=== PATIENT | female | born 1940 ===

== ENCOUNTER 2023-03-15 16:05 | Outpatient (REF) | payer MEDICARE, SELFPAY ==
[2023-03-15 17:12] LABS: ALT 33 U/L (14-59); AST 25 U/L (15-37)
== END 2023-03-15 16:06 | disposition home or self-care (01) ==
LOC: NCHCN 16:05
PROVIDERS: Visit Provider Family Medicine
DX: E78.5 Hyperlipidemia, unspecified (principal); E03.9 Hypothyroidism, unspecified; I10 Essential (primary) hypertension
CPT/HCPCS: 84450; 84460

== ENCOUNTER 2024-01-24 11:36 | Outpatient (REF) | payer MEDICARE, SELFPAY ==
--- OUTSIDE RECORDS SUMMARY | 2024-01-24 11:39 | XMS_ITS | Continuity of Care Document ---
Author Organization [place] - [facility] Address [address] [place] [address] Assessment No assessment recorded. Plan of Treatment Reminders Order Date Submit Date Provider Last Modified By Organization Details Last Modified Time Details Appointments Nurse Visit 2023 10:30A M Kamuela Nursing Staff Not available Not available Not available Annual Chronic Care (65+) 2024 02:10P M OLINDA DEGE Not available Not available Not available Annual Chronic Care (65+) 2024 10:10A M OLINDA DEGE Not available Not available Not available Lab CMP, serum or plasma 2023 024 [email or web address] [facility] (Registration ), [address] [place] [address] [place], [address], 01/24/2024 11:18:48 CBC w/ auto diff 2023 024 [email or web address] [facility] (Registration ), [address] [place] [address] [place], [address], 01/24/2024 11:18:48 lipid panel, serum - 1Y 2023 024 [email or web address] [facility] (Registration ), [address] [place] [address] [place], [address], 01/24/2024 10:40:26 Referral None recorded. Procedures None recorded. Surgeries None recorded. Imaging None recorded. Medication Orders lisinopri l 10 mg tablet 2023 024 OLGA [facility]), [facility], [address], [place], [place], [id number], 12/28/2023 09:59:53 hydrochlo rothiazid e 25 mg tablet 2023 024 OLGA [facility] ([facility]), [address] [facility], [address], [place], [place], [id number], 12/28/2023 09:59:53 lovastati n 40 mg tablet 2023 024 OLGA [facility] ([facility]), [address] [facility], [address], [place], [place], [id number], 12/28/2023 09:59:52 fluoxetin e 60 mg tablet 2023 024 [email or web address] [facility] ([facility]), [address] [facility], [address], [place], [place], [id number], 01/02/2024 10:04:16 Patient TargetsNo targets recorded. Patient InstructionsNo instructions recorded. Reason for Referral None Reported. Problems Name Status Onset Date Resolution Date Notes Provider Name and Address Organization Details Recorded Time Essential hypertension Active [address], [place], [address] , [facility] 4 17:10:55 Hypothyroidism Active [address], [place], [address], [facility] 4 17:10:43 Depressive disorder Active [address], [place], [address], [facility] 4 17:11:00 Bilateral carpal tunnel syndrome Active 023 Suleiman Vogel null, [facility] 4 17:13:39 Hyperlipidemia Active 023 OLINDA NELSON MD [address], [place], [address], [facility] 4 17:10:50 Adult health examination Active 023 6 mos in [place], annual labs typically done there OLINDA NELSON MD [address], [facility] [address], [facility] 4 09:34:38 Knee joint prosthesis present Completed 023 12/28/2023 OLINDA NELSON MD [address], [facility] [address], [facility] 4 09:35:25 Actinic keratosis Active 014 OLINDA NELSON MD [address], [facility] [address], 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 4 09:35:53 Hemangioma Active 015 Suleiman Vogel [facility] 4 17:15:01 Acne vulgaris Active 021 Suleiman Vogel [facility] 4 17:13:25 Problem Notes None recorded. Medical Equipment None Reported. Allergies Allergen ID Allergen Name Allergen Category Reaction Reaction Severity Criticality Documentation Date Start Date Code Code System Note Provider Name and Address Organization Details Recorded Time 91802 sulfasala zine Not available rash severe Not available 05/19/20232022 9524 RxNorm Not Available [facility] 3 16:25:22 Medications Name Sig Start Date Stop Date Status Note LastModified by Organization Details LastModified Time fluoxetine 40 mg capsule Take 1 capsule by mouth daily with 20 mg capsule to equal 60mg active Not Available Not Available No t Available CoQ10 10 mg capsule Take 1 capsule every day by oral route. active OTC Not Available Not Available No t Available lovastatin 40 mg tablet Take 1 tablet by mouth every night active Not Available Not Available No t Available acetaminoph en 300 mg-codeine 30 mg tablet TAKE ONE TABLET BY MOUTH EVERY 6 HOURS 12/27 completed Not Available Not Available Not Available levothyroxi ne 88 mcg tablet TAKE ONE TABLET BY MOUTH EVERY MORNING ON AN EMPTY STOMACH active Not Available Not Available No t Available amoxicillin 875 mg tablet TAKE ONE TABLET BY MOUTH TWICE A DAY UNTIL GONE 12/27 completed Not Available Not Available Not Available lisinopril 10 mg tablet TAKE 1 TABLET BY MOUTH ONCE DAILY 2023 active Not Available Not Available Not Avai lable hydrochloro thiazide 25 mg tablet Take 1 tablet every day by oral route in the morning. active Not Available Not Available No t Available methylpredn isolone 4 mg tablets in a dose pack TAKE BY MOUTH DIRECTED ON PACKAGE 12/27 completed Not Available Not Available Not Available fluoxetine 20 mg capsule Take (1) 20 mg capsule with( 1) 40 mg capsule to total 60 mg active Not Available Not Available No t Available chlorhexidi ne gluconate 0.12 % mouthwash SWAB SURGICAL AREA TWICE A DAY FOR 1 WEEK DIRECTED 12/27 completed Not Available Not Available Not Available hydrochloro thiazide 12.5 mg tablet Take 2 tablet by mouth every morning (25 mg daily) 12/27 completed Not Available Not Available Not Available fluoxetine 60 mg tablet Take 1 tablet by mouth once a day 01/01 completed Not Available Not Available Not Available Vitals Date Recorded Body height Body mass index (BMI) Body weight Body temperature Oxygen saturation Oxygen saturation in Arterial blood by Pulse oximetry Heart rate Systolic blood pressure Diastolic blood pressure Provider Name and Address Organization Details Last Updated DateTime 4 157.48 cm 36.9 kg/m2 50137.6 6 g 97.1 [degF] 97 % 97 % 70 /min 140 mm[Hg] 90 mm[Hg] SHOLA TURCIOS [place] [facility]. 4 09:24:15 Social History None recorded. Functional Status None recorded. Mental Status None recorded. Family History Nothing Reported. Medical History No medical history recorded. Gynecological HistoryNo gynecological history recorded. Obstetrics History GPAL:G 0 P 0 0 0 0 Immunizations Vaccine Type Date Status Provider Name and Address Organization Details Recorded Time Tdap 12/28/2023 completed OLINDA NELSON MD [address], [place], [address], [facility] 01/02/2024 10:03:37 COVID-19, mRNA, LNP-S, PF, 100 mcg/0.5mL dose or 50 mcg/0.25mL dose 10/16/2021 completed RANDA DIMICK, REJOGGER null, [facility] 12/28/2023 15:17:57 COVID-19, mRNA, LNP-S, PF, 100 mcg/0.5mL dose or 50 mcg/0.25mL dose 05/27/2021 completed RANDA DIMICK, REJOGGER null, [facility] 12/28/2023 15:18:17 Hep B, unspecified formulation 12/25/2023 completed RANDA CANTUICK, REJOGGER null, [facility] 12/28/2023 15:18:42 Hep B, unspecified formulation 02/27/2014 completed RANDA DIMICK, REJOGGER null, [facility] 12/28/2023 15:18:49 Hep B, unspecified formulation 06/16/2014 completed RANDA DIMICK, REJOGGER null, [facility] 12/28/2023 15:18:55 Hep A, unspecified formulation 12/13/2018 completed RANDA CANTUICK, REJOGGER null, [facility] 12/28/2023 15:19:12 Pneumococcal conjugate PCV 13 10/05/2016 completed RANDA DIMICK, REJOGGER null, [facility] 12/28/2023 15:22:03 Pneumococcal conjugate PCV 13 01/22/2018 completed RANDA POP, REJOGGER null, [facility] 12/28/2023 15:22:10 pneumococcal polysaccharide PPV23 08/22/2007 completed RANDA POP, REJOGGER null, [facility] 12/28/2023 15:22:48 pneumococcal polysaccharide PPV23 10/06/2021 completed RANDA POP, REJOGGER null, [facility]. 12/28/2023 15:22:59 zoster live 10/09/2009 completed RANDA POP, REJOGGER null, [facility] 12/28/2023 15:23:16 zoster recombinant 09/21/2021 completed RANDA CANTU ICK, REJOGGER null, [facility] 12/28/2023 15:23:31 Tdap 12/04/2012 completed RANDA POP, REJOGGER null, [facility] 12/28/2023 15:23:49 COVID-19, mRNA, LNP-S, PF, 50 mcg/0.5 mL dose 09/24/2020 completed RANDA POP, REJOGGER null, [facility] 12/28/2023 15:24:55 COVID-19, mRNA, LNP-S, PF, 50 mcg/0.5 mL dose 10/22/2020 completed RANDA POP, REJOGGER null, [facility] 12/28/2023 15:25:06 Respiratory syncytial virus (RSV) MAB, unspecified 05/01/2023 completed RANDA POP, REJOGGER null, [facility] 12/28/2023 15:29:36 COVID-19, mRNA, LNP-S, PF, 100 mcg/0.5mL dose or 50 mcg/0.25mL dose 10/11/2023 completed RANDA POP, REJOGGER null, [facility] 12/28/2023 15:30:36 influenza, unspecified formulation 05/06/2010 completed RANDA POP, REJOGGER null, [facility] 12/28/2023 15:32:11 influenza, unspecified formulation 06/25/2011 completed RANDA POP, REJOGGER null, [facility] 12/28/2023 15:32:16 influenza, unspecified formulation 05/06/2012 completed RANDA POP, REJOGGER null, [facility] 12/28/2023 15:32:36 influenza, unspecified formulation 07/23/2013 completed RANDA DIMICK, REJOGGER null, [facility] 12/28/2023 15:32:46 influenza, unspecified formulation 03/31/2015 completed RANDA DIMICK, REJOGGER null, [facility] 12/28/2023 15:33:00 influenza, unspecified formulation 06/09/2016 completed RANDA DIMICK, REJOGGER null, [facility] 12/28/2023 15:33:08 influenza, unspecified formulation 05/12/2016 completed RANDA DIMICK, REJOGGER null, [facility], [facility]. 12/28/2023 15:33:14 influenza, unspecified formulation 06/20/2017 completed RANDA DIMICK, REJOGGER null, [facility] 12/28/2023 15:33:19 influenza, unspecified formulation 05/10/2018 completed RANDA DIMICK, REJOGGER null, [facility], [facility] 12/28/2023 15:33:25 influenza, unspecified formulation 06/04/2019 completed RANDA DIMICK, REJOGGER null, [facility] 12/28/2023 15:33:38 influenza, unspecified formulation 04/08/2020 completed RANDA DIMICK, REJOGGER null, [facility], [facility]. 12/28/2023 15:33:53 influenza, unspecified formulation 06/21/2021 completed RANDA DIMICK, REJOGGER null, [facility] 12/28/2023 15:34:08 influenza, unspecified formulation 05/01/2023 completed RANDA DIMICK, REJOGGER null, [facility] 12/28/2023 15:35:12 Past Encounters Encounter ID Performer Location Encounter Start Date Encounter Closed Date Diagnosis/Indication Diagnosis SNOMED-CT Code [id number] OLINDA NELSON MD [address] [address] 12/28/2023 09:03:32 12/28/2023 10:16:53 Essential hypertension 30774283 Adult heal th examination 763771703 Hyperlipidemia 26705672 Hypothyroidism 06327208 Depressive disorder 3548 9007 Active or passive immunization 387784940 Health Concerns Section Related Observation LastModified by Organization Detai ls LastModified Time None Recorded Concern Status LastModified by Organization Details LastModified Time None Recorded Payers Encounter Date Sequence Insurance Name Policy Number Policy Rodas Covered Member ID Rodas Member ID Guarantor Name 12/28/2023 1 [facility] (MEDICARE REPLACEMENT/A DVANTAGE - PPO) [id number] Risa Junior [id number] Risa Junior Notes Date Note Type Note Provider Name and Address Organization Details Recorded Time 12/28/2023 text/html HPI Notes: Patient here for follow-up for her chronic issues including hypertension, hyperlipidemia, hypothyroidism. This half-time here, half in [place] plus some traveling. Providers in [place]. Did not do her annual blood work last time she was there so she will come back fasting here. Only real concern today is she has some issues with sleep at times. If she does get to the bathroom it takes a while to fall back to sleep again. Would like refills for her medications, agrees to come back for fasting labs OLINDA NELSON MD [address], [place], [address], [facility]. 01/02/2024 10:12:52 OBGyn Episode No OBEpisode recorded.
--- OUTSIDE RECORDS SUMMARY | 2024-01-24 11:39 | XMS_ITS | Data Portability ---
Author Organization [place] - [facility] Address [address] [place] [address] Assessment No assessment recorded. Plan of Treatment Reminders Order Date Submit Date Provider Last Modified By Organization Details Last Modified Time Details Appointments Nurse Visit 2023 10:30A M John Nursing Staff Not available Not available Not available Annual Chronic Care (65+) 2024 02:10P M OLINDA DEGE Not available Not available Not available Annual Chronic Care (65+) 2024 10:10A M OLINDA DEGE Not available Not available Not available Lab CMP, serum or plasma 2023 024 [email or web address] [facility] (Registration ), [address] [place] [address] [place], [address], 01/24/2024 11:18:48 CBC w/ auto diff 2023 024 [email or web address] [facility] (Registration ), [address] [place] [address] [place], [address], 01/24/2024 11:18:48 lipid panel, serum - 1Y 2023 024 [email or web address] [facility] (Registration ), [address] [place] [address] [place], [address], 01/24/2024 10:40:26 lipid panel, serum - 1Y 2023 024 [email or web address] [facility] (Registration ), [address] [place] [address] [place], [address], 01/24/2024 10:40:26 Referral None recorded. Procedures None recorded. Surgeries None recorded. Imaging None recorded. Medication Orders lisinopri l 10 mg tablet 2023 024 OLGA [facility]), [address] [facility], [address], [place], [place], [id number], 12/28/2023 09:59:53 hydrochlo rothiazid e 25 mg tablet 2023 024 OLGA [facility]), [address], [address], [place], [place], [id number], 12/28/2023 09:59:53 lovastati n 40 mg tablet 2023 024 OLGA [facility]), [address] [facility] [address] [facility], [address], [place], [place], [id number], 12/28/2023 09:59:52 fluoxetin e 60 mg tablet 2023 024 [email or web address] [facility]), [address] [facility], [address], [place], [place], [id number], 01/02/2024 10:04:16 Patient TargetsNo targets recorded. Patient InstructionsNo instructions recorded. Reason for Referral None Reported. Problems Name Status Onset Date Resolution Date Notes Provider Name and Address Organization Details Recorded Time Essential hypertension Active [address], [place], [address], [facility] 4 17:10:55 Hypothyroidism Active [address], [place], [address], [facility] 4 17:10:43 Depressive disorder Active [address], [place], [address], [facility] 4 17:11:00 Bilateral carpal tunnel syndrome Active 023 Suleiman Vogel [facility] 4 17:13:39 Hyperlipidemia Active 023 OLINDA NELSON MD [address], [place], [address], [facility] 4 17:10:50 Adult health examination Active 023 6 mos in [place], annual labs typically done there MD [address]en [address], [place], [address], [facility] 4 09:34:38 Knee joint prosthesis present Completed 023 12/28/[address], [place], [address], [facility] 4 09:35:25 Actinic keratosis Active [address], [place], [address], [facility] 4 09:35:57 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 Medical Equipment None Reported. Allergies Allergen ID Allergen Name Allergen Category Reaction Reaction Severity Criticality Documentation Date Start Date Code Code System Note Provider Name and Address Organization Details Recorded Time 74433 sulfasala zine Not available rash severe Not available 05/19/20232022 9556 RxNorm Not Available [facility] 3 16:25:22 Medications Name Sig Start Date [...] Updated DateTime 4 157.48 cm 36.9 kg/m2 26730.6 6 g 97.1 [degF] 97 % 97 % 70 /min 140 mm[Hg] 90 mm[Hg] SHOLA TURCIOS MA [facility], [facility]. 09:24:15 Date Recorded Body height Systolic blood pressure Diastolic blood pressure Provider Name and Address Organization Details Last Updated DateTime 01/24/2024 157.48 cm 118 mm[Hg] 70 mm[Hg] ANKUSH GALLOWAY CMA [facility]. 01/24/2024 10:34:24 Social History None recorded. Functional Status None recorded. Mental Status None recorded. Family History Nothing Reported. Medical History No medical history recorded. Gynecological HistoryNo gynecological history recorded. Obstetrics History GPAL:G 0 P 0 0 0 0 Immunizations Vaccine Type Date Status Provider Name and Address Organization Details Recorded Time Tdap 12/28/2023 completed OLINDA NELSON MD [address], [place], [address], [facility] 01/02/2024 10:03:37 COVID-19, mRNA, LNP-S, PF, 100 mcg/0.5mL dose or 50 mcg/0.25mL dose 10/16/2021 completed RANDA DIMICK, GUITAR MAKER HAND null, [facility] 12/28/2023 15:17:57 COVID-19, mRNA, LNP-S, PF, 100 mcg/0.5mL dose or 50 mcg/0.25mL dose 05/27/2021 completed RANDA CANTUICK, GUITAR MAKER HAND null, [facility]. 12/28/2023 15:18:17 Hep B, unspecified formulation 12/25/2023 completed RANDA PEPEICK, GUITAR MAKER HAND null, [facility] 12/28/2023 15:18:42 Hep B, unspecified formulation 02/27/2014 completed RANDA DIMICK, GUITAR MAKER HAND null, [facility]. 12/28/2023 15:18:49 Hep B, unspecified formulation 06/16/2014 completed RANDA DIMICK, GUITAR MAKER HAND null, [facility] 12/28/2023 15:18:55 Hep A, unspecified formulation 12/13/2018 completed RANDA DIMICK, GUITAR MAKER HAND null, [facility] 12/28/2023 15:19:12 Pneumococcal conjugate PCV 13 10/05/2016 completed RANDA POP, GUITAR MAKER HAND null, [facility]. 12/28/2023 15:22:03 Pneumococcal conjugate PCV 13 01/22/2018 completed RANDA POP, GUITAR MAKER HAND null, [facility] 12/28/2023 15:22:10 pneumococcal polysaccharide PPV23 08/22/2007 completed RANDA POP, GUITAR MAKER HAND null, [facility] 12/28/2023 15:22:48 pneumococcal polysaccharide PPV23 10/06/2021 completed RANDA POP, GUITAR MAKER HAND null, [facility] 12/28/2023 15:22:59 zoster live 10/09/2009 completed RANDA POP, GUITAR MAKER HAND null, [facility] 12/28/2023 15:23:16 zoster recombinant 09/21/2021 completed RANDA FUCHSK, GUITAR MAKER HAND null, [facility]. 12/28/2023 15:23:31 Tdap 12/04/2012 completed RANDA POP, GUITAR MAKER HAND null, [facility] 12/28/2023 15:23:49 COVID-19, mRNA, LNP-S, PF, 50 mcg/0.5 mL dose 09/24/2020 completed RANDA POP, GUITAR MAKER HAND null, [facility] 12/28/2023 15:24:55 COVID-19, mRNA, LNP-S, PF, 50 mcg/0.5 mL dose 10/22/2020 completed RANDA POP, GUITAR MAKER HAND null, [facility] 12/28/2023 15:25:06 Respiratory syncytial virus (RSV) MAB, unspecified 05/01/2023 completed RANDA POP, GUITAR MAKER HAND null, [facility] 12/28/2023 15:29:36 COVID-19, mRNA, LNP-S, PF, 100 mcg/0.5mL dose or 50 mcg/0.25mL dose 10/11/2023 completed RANDA CANTUICK, GUITAR MAKER HAND null, [facility] 12/28/2023 15:30:36 influenza, unspecified formulation 05/06/2010 completed RANDA DIMICK, GUITAR MAKER HAND null, [facility] 12/28/2023 15:32:11 influenza, unspecified formulation 06/25/2011 completed RANDA DIMICK, GUITAR MAKER HAND null, [facility] 12/28/2023 15:32:16 influenza, unspecified formulation 05/06/2012 completed RANDA DIMICK, GUITAR MAKER HAND null, [facility] 12/28/2023 15:32:36 influenza, unspecified formulation 07/23/2013 completed RANDA DIMICK, GUITAR MAKER HAND null, [facility] 12/28/2023 15:32:46 influenza, unspecified formulation 03/31/2015 completed RANDA DIMICK, GUITAR MAKER HAND null, [facility] 12/28/2023 15:33:00 influenza, unspecified formulation 06/09/2016 completed RANDA DIMICK, GUITAR MAKER HAND null, [facility] 12/28/2023 15:33:08 influenza, unspecified formulation 05/12/2016 completed RANDA DIMICK, GUITAR MAKER HAND null, [facility] 12/28/2023 15:33:14 influenza, unspecified formulation 06/20/2017 completed RANDA DIMICK, GUITAR MAKER HAND null, [facility] 12/28/2023 15:33:19 influenza, unspecified formulation 05/10/2018 completed RANDA DIMICK, GUITAR MAKER HAND null, [facility] 12/28/2023 15:33:25 influenza, unspecified formulation 06/04/2019 completed RANDA DIMICK, GUITAR MAKER HAND null, [facility] 12/28/2023 15:33:38 influenza, unspecified formulation 04/08/2020 completed RANDA DIMICK, GUITAR MAKER HAND null, [facility] 12/28/2023 15:33:53 influenza, unspecified formulation 06/21/2021 completed RANDA DIMICK, GUITAR MAKER HAND null, [facility] 12/28/2023 15:34:08 influenza, unspecified formulation 05/01/2023 completed RANDA DIMICK, GUITAR MAKER HAND null, [facility] 12/28/2023 15:35:12 Past Encounters Encounter ID Performer Location Encounter Start Date Encounter Closed Date Diagnosis/Indication Diagnosis SNOMED-CT Code [id number] OLINDA NELSON MD [address] [address] 12/28/2023 09:03:32 12/28/2023 10:16:53 Essential hypertension 80924410 Adult heal th examination 306169301 Hyperlipidemia 09064868 Hypothyroidism 52126913 Depressive disorder 3548 9007 Active or passive immunization 854033454 [id number] ANKUSH GALLOWAY CMA [address] [address] 01/24/2024 10:19:30 01/24/2024 10:36:15 Hyperlipidemia 04551875 Health Concerns Section Related Observation LastModified by Organization Detai ls LastModified Time None Recorded Concern Status LastModified by Organization Details LastModified Time None Recorded Advance Directives Directive None Recorded Payers Encounter Date Sequence Insurance Name Policy Number Policy Rodas Covered Member ID Rodas Member ID Guarantor Name 12/28/2023 1 [facility] (MEDICARE REPLACEMENT/A DVANTAGE - PPO) [id number] Risa E Sandi [id number] Risa E Sandi 01/24/2024 1 [facility] (MEDICARE REPLACEMENT/A DVANTAGE - PPO) [id number] Risa E Sandi [id number] Risa E Sandi Notes Date Note Type Note Provider Name [...] agrees to come back for fasting labs MD [address]en [address], [place], [address], [place] [facility]. 01/02/2024 10:12:52 OBGyn Episode No OBEpisode recorded.
--- OUTSIDE RECORDS SUMMARY | 2024-01-24 11:39 | XMS_ITS | Continuity of Care Document ---
Author Organization [facility], [facility] Address [address] [place] [address] Assessment No assessment recorded. Plan of Treatment Reminders Order Date Submit Date Provider Last Modified By Organization Details Last Modified Time Details Appointments Nurse Visit 2023 10:30A M [place] [facility] Not available Not available Not available Annual Chronic Care (65+) 2024 02:10P M OLINDA NELSON Not available Not available Not available Annual Chronic Care (65+) 2024 10:10A M OLINDA NELSON Not available Not available Not available Lab lipid panel, serum - 1Y 2023 024 [facility] (Registration ), [address] [place] [address] , [place], [address], 01/24/2024 10:40:26 Referral None recorded . Procedures None recorded . Surgeries None recorded . Imaging None recorded . Medication Orders None recorded . Patient TargetsNo targets recorded. Patient InstructionsNo instructions recorded. Reason for Referral None Reported. Problems Name Status Onset Date Resolution Date Notes Provider Name and Address Organization Details Recorded Time Essential hypertension Active [address], [place], [address], [facility] 4 17:10:55 Hypothyroidism Active MD [address], [place], [address], [facility] 4 17:10:43 Depressive disorder Active MD [address], [place], [address], [facility] 4 17:11:00 Bilateral carpal tunnel syndrome Active 023 Suleiman Jaspreet [facility] 4 17:13:39 Hyperlipidemia Active 023 OLINDA NELSON MD [address], [place], [address], [facility] 4 17:10:50 Adult health examination Active 023 6 mos in [place], annual labs typically done there MD [address], [place], [address], [facility] 4 09:34:38 Knee joint prosthesis present Completed 023 12/28/[address], [place], [address], [facility] 4 09:35:25 Actinic keratosis Active [address], [place], [address], [facility] 4 09:35:57 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 Medical Equipment None Reported. Allergies Allergen ID Allergen Name Allergen Category Reaction Reaction Severity Criticality Documentation Date Start Date Code Code System Note Provider Name and Address Organization Details Recorded Time 28374 sulfasala zine Not available rash severe Not available 05/19/20232022 9524 RxNorm Not Available [facility] 16:25:22 Medications Name Sig Start Date Stop [...] Not Available Vitals Date Recorded Body height Systolic blood pressure Diastolic blood pressure Provider Name and Address Organization Details Last Updated DateTime 01/24/2024 157.48 cm 118 mm[Hg] 70 mm[Hg] ANKUSH GALLOWAY CMA [place] [facility] 01/24/2024 10:34:24 Social History None recorded. Functional Status None recorded. Mental Status None recorded. Family History Nothing Reported. Medical History No medical history recorded. Gynecological HistoryNo gynecological history recorded. Obstetrics History GPAL:G 0 P 0 0 0 0 Immunizations Vaccine Type Date Status Provider Name and Address Organization Details Recorded Time Tdap 12/28/[address], [place], [address] 01/02/2024 10:03:37 COVID-19, mRNA, LNP-S, PF, 100 mcg/0.5mL dose or 50 mcg/0.25mL dose 10/16/2021 completed RANDA DIMICK, SOLE TRIMMER null, [facility] 12/28/2023 15:17:57 COVID-19, mRNA, LNP-S, PF, 100 mcg/0.5mL dose or 50 mcg/0.25mL dose 05/27/2021 completed RANDA DIMICK, SOLE TRIMMER null, [facility] 12/28/2023 15:18:17 Hep B, unspecified formulation 12/25/2023 completed RANDA DIMICK, SOLE TRIMMER null, [facility] 12/28/2023 15:18:42 Hep B, unspecified formulation 02/27/2014 completed RANDA DIMICK, SOLE TRIMMER null, [facility] 12/28/2023 15:18:49 Hep B, unspecified formulation 06/16/2014 completed RANDA DIMICK, SOLE TRIMMER null, [facility] 12/28/2023 15:18:55 Hep A, unspecified formulation 12/13/2018 completed RANDA DIMICK, SOLE TRIMMER null, [facility] 12/28/2023 15:19:12 Pneumococcal conjugate PCV 13 10/05/2016 completed RANDA DIMICK, SOLE TRIMMER null, [facility] 12/28/2023 15:22:03 Pneumococcal conjugate PCV 13 01/22/2018 completed RANDA DIMICK, SOLE TRIMMER null, [facility] 12/28/2023 15:22:10 pneumococcal polysaccharide PPV23 08/22/2007 completed RANDA DIMICK, SOLE TRIMMER null, [facility] 12/28/2023 15:22:48 pneumococcal polysaccharide PPV23 10/06/2021 completed RANDA POP SOLE TRIMMER null, [facility] 12/28/2023 15:22:59 zoster live 10/09/2009 completed RANDA POP, SOLE TRIMMER null, [facility] 12/28/2023 15:23:16 zoster recombinant 09/21/2021 completed RANDA FUCHSK, SOLE TRIMMER null, [facility] 12/28/2023 15:23:31 Tdap 12/04/2012 completed RANDA POP SOLE TRIMMER null, [facility] 12/28/2023 15:23:49 COVID-19, mRNA, LNP-S, PF, 50 mcg/0.5 mL dose 09/24/2020 completed RANDA POP, SOLE TRIMMER null, [facility] 12/28/2023 15:24:55 COVID-19, mRNA, LNP-S, PF, 50 mcg/0.5 mL dose 10/22/2020 completed RANDA POP, SOLE TRIMMER null, [facility] 12/28/2023 15:25:06 Respiratory syncytial virus (RSV) MAB, unspecified 05/01/2023 completed RANDA POP, SOLE TRIMMER null, [facility] 12/28/2023 15:29:36 COVID-19, mRNA, LNP-S, PF, 100 mcg/0.5mL dose or 50 mcg/0.25mL dose 10/11/2023 completed RANDA POP, SOLE TRIMMER null, [facility] 12/28/2023 15:30:36 influenza, unspecified formulation 05/06/2010 completed RANDA POP, SOLE TRIMMER null, [facility] 12/28/2023 15:32:11 influenza, unspecified formulation 06/25/2011 completed RANDA POP, SOLE TRIMMER null, [facility] 12/28/2023 15:32:16 influenza, unspecified formulation 05/06/2012 completed RANDA POP SOLE TRIMMER null, [facility] 12/28/2023 15:32:36 influenza, unspecified formulation 07/23/2013 completed RANDA DIMICK, SOLE TRIMMER null, [facility] 12/28/2023 15:32:46 influenza, unspecified formulation 03/31/2015 completed RANDA DIMICK, SOLE TRIMMER null, [facility] 12/28/2023 15:33:00 influenza, unspecified formulation 06/09/2016 completed RANDA DIMICK, SOLE TRIMMER null, [facility] 12/28/2023 15:33:08 influenza, unspecified formulation 05/12/2016 completed RANDA DIMICK, SOLE TRIMMER null, [facility], [facility]. 12/28/2023 15:33:14 influenza, unspecified formulation 06/20/2017 completed RANDA DIMICK, SOLE TRIMMER null, [facility] 12/28/2023 15:33:19 influenza, unspecified formulation 05/10/2018 completed RANDA DIMICK, SOLE TRIMMER null, [facility] 12/28/2023 15:33:25 influenza, unspecified formulation 06/04/2019 completed RANDA DIMICK, SOLE TRIMMER null, [facility] 12/28/2023 15:33:38 influenza, unspecified formulation 04/08/2020 completed RANDA DIMICK, SOLE TRIMMER null, [facility] 12/28/2023 15:33:53 influenza, unspecified formulation 06/21/2021 completed RANDA DIMICK, SOLE TRIMMER null, [facility] 12/28/2023 15:34:08 influenza, unspecified formulation 05/01/2023 completed RANDA DIMICK, SOLE TRIMMER null, [facility] 12/28/2023 15:35:12 Past Encounters Encounter ID Performer Location Encounter Start Date Encounter Closed Date Diagnosis/Indication Diagnosis SNOMED-CT Code [id number] OLINDA NELSON MD [address] [address] 12/28/2023 09:03:32 12/28/2023 10:16:53 Essential hypertension 45757218 Adult heal th examination [id number] Hyperlipidemia 41313940 Hypothyroidism 47696734 Depressive disorder 7538 9007 Active or passive immunization [id number] ANKUSH GALLOWAY CMA [address] [address] 01/24/2024 10:19:30 01/24/2024 10:36:15 [facility] [id number] Health Concerns Section Related Observation LastModified by Organization Detai ls LastModified Time None Recorded Concern Status LastModified by Organization Details LastModified Time None Recorded Payers Encounter Date Sequence Insurance Name Policy Number Policy Rodas Covered Member ID Rodas Member ID Guarantor Name 01/24/2024 1 [facility] (MEDICARE REPLACEMENT/A DVANTAGE - PPO) [id number] Risa Junior [id number] Risa Junior OBGyn Episode No OBEpisode recorded.
[2024-01-24 15:51] LABS: Calculated LDL 126 mg/dL (<100); Cholesterol 200 mg/dL (<200); HDL Cholesterol 44 mg/dL (40-60); Triglyceride 150 mg/dL (<150)
== END 2024-01-24 11:37 | disposition home or self-care (01) ==
LOC: NCHCN 11:36
PROVIDERS: Visit Provider Family Medicine
DX: E78.5 Hyperlipidemia, unspecified (principal)
CPT/HCPCS: 80061

== ENCOUNTER 2025-01-02 13:50 | Outpatient (REF) | payer MEDICARE, SELFPAY ==
[2025-01-02 15:24] LABS: Abs Immature Grans 0.01 10^3/uL (0.0-0.06); Absolute Basophil Count 0.04 10^3/uL (0.0-0.2); Absolute Eosinophil Count 0.11 10^3/uL (0.0-0.7); Absolute Lymphocyte Count 2.32 10^3/uL (1.2-3.4); Absolute Monocyte Count 0.82 10^3/uL (0.1-0.8); Absolute Neutrophil Count 3.01 10^3/uL (1.2-6.7); Basophils % 0.6 %; Eosinophils % 1.7 %; HCT 42.7 % (36.0-46.0); HGB 13.8 g/dL (11.2-15.7); Immature Grans % 0.2 %; Lymphocytes % 36.8 %; MCH 29.7 pg (27.0-33.0); MCHC 32.3 % (32.0-36.0); MCV 92 fL (80-95); MPV 10.6 fL (8.0-11.0); Neutrophils % 47.7 %; Platelet Count 245 10^3/uL (130-400); RBC 4.65 10^6/uL (3.93-5.22); RDW 13.8 % (11.7-14.6); RDW-SD 47.2 fL; WBC 6.31 10^3/uL (4.4-10.8)
[2025-01-02 16:25] LABS: ALT 31 U/L (14-59); AST 24 U/L (15-37); Albumin 4.1 g/dL (3.4-5.0); Alkaline Phosphatase 82 U/L (46-116); Anion Gap 6.4 mmol/L (3-11); BUN 22 mg/dL (7-18); Bilirubin, Total 0.4 mg/dL (0.2-1.0); CO2 30.6 mmol/L (21.0-32.0); CREATININE 0.8 mg/dL (0.55-1.02); Calcium 9.4 mg/dL (8.5-10.1); Chloride 104 mmol/L (98-107); Estimated GFR 73.52 (mL/min/1.73m2); Folate 16.6 ng/mL (8.6-20.0); Glucose 99 mg/dL (74-106); LDL CHOLESTEROL 188 mg/dL (<100); Potassium 4.5 mmol/L (3.5-5.1); Sodium 141 mmol/L (136-145); TSH 0.17 uIU/mL (0.36-3.74); Total Protein 7.3 g/dL (6.4-8.2); Vitamin B12 595 pg/mL (193-986)
== END 2025-01-02 13:51 | disposition home or self-care (01) ==
LOC: NCHCN 13:50
PROVIDERS: Visit Provider Family Medicine
DX: I10 Essential (primary) hypertension (principal); E78.5 Hyperlipidemia, unspecified; R20.2 Paresthesia of skin; E03.9 Hypothyroidism, unspecified
CPT/HCPCS: 80053; 83721; 82607; 82746; 84443; 85025

== ENCOUNTER 2025-04-04 09:58 | Outpatient (CLI) | payer MEDICARE, SELFPAY ==
--- NOTE | 2025-04-04 10:50 | DI.RAD_ITS ---
Exam(s) XR SHOULDER RT COMPLETE 2+V EXAM: XR SHOULDER RT COMPLETE 2+V CLINICAL HISTORY: PAIN OF RT SHOULDER, M25.519. TECHNIQUE: 2D digital imaging was performed. Five views. COMPARISON: No exams were available for comparison FINDINGS: BONES: No acute fracture is present. No bony destructive lesion is seen. There is mild spurring at the greater tuberosity. JOINTS: No dislocation present. Mild spurring at the AC joint. Glenohumeral joint space is maintained. There is mild spurring at the inferior humeral head margin of the glenoid. SOFT TISSUE: Normal. 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 DATA REPOSITORY: RADIATION DOSE DELIVERED:
== END 2025-04-04 10:18 ==
PROVIDERS: PCP Family Medicine; Visit Provider Family Medicine
DX: M19.011 Primary osteoarthritis, right shoulder (principal)
CPT/HCPCS: 73030